=== PATIENT | male | born 1945 | race Caucasian/White ===

== ENCOUNTER 2016-09-25 16:17 | Emergency (ER) | payer OTHER, MEDICARE ==
[~2016-09-25] VITALS: Ht 175.3 cm; Wt 142.0 kg
[2016-09-25] MEDS ORDERED: METFORMIN HCL1000 M1 PO (16:25)
[2016-09-25] MEDS ORDERED: PANTOPRAZOLE SO40 M1 PO (16:25)
[2016-09-25] MEDS ORDERED: VALSARTAN-HCTZ1 EAC2 PO (16:25)
[2016-09-25] MEDS ORDERED: METOPROLOL SUCC25 M1 PO (16:25)
[2016-09-25] MEDS ORDERED: LEVOTHYROXINE50 MCG PO (16:25)
[2016-09-25] MEDS ORDERED: ASPIRIN81 M4 PO (16:26)
[2016-09-25] MEDS ORDERED: ATORVASTATIN CA40 M1 PO (16:26)
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
[2016-09-25 17:36] VITALS: BP 148/71
== END 2016-09-25 17:41 ==
LOC: ERH 16:17
DX: M25.522 Pain in left elbow (principal)